=== PATIENT | female | born 1965 | race Caucasian/White ===

== ENCOUNTER 2022-06-22 16:22 | Emergency (ER) | payer MEDICAID ==
[~2022-06-22] VITALS: Ht 165.1 cm; Wt 61.2 kg
[2022-06-22] MEDS ORDERED: IV NORMAL SALINE 1000 ML BAG IV ONE (16:45)
--- NOTE | 2022-06-22 17:00 | NUR ---
pt roomed, resting comfortably in bed. blood samples sent to lab, IV started 20g R AC, has NS running as ordered by , tolerating. will continue to monitor.
[2022-06-22 17:03] LABS: HEMATOCRIT 38.4 % (31.2-41.9); MEAN CORPUSCULAR HEMOGLOBIN 32.5 uug (24.7-32.8); MEAN CORPUSCULAR VOLUME 98.3 fL (75.5-95.3); PLATELET COUNT (AUTO) 181 K/uL (179-408)
[2022-06-22 17:15] LABS: CREATININE 0.6 mg/dL (0.6-1.3); POTASSIUM 3.6 mmol/L (3.5-5.1)
--- NOTE | 2022-06-22 18:18 | NUR ---
pt completed her liter of NS, IV converted to saline lock, was given a dinner tray and ate 50% of tray. She is now resting, is asleep in bed. will continue to monitor.
--- NOTE | 2022-06-22 19:42 | NUR ---
iv to right ac pt states it is painful. i flushed the site it flushes well no signs of infiltration noted. iv was removed as pt insisted, i informed the pt if she needs an iv we need to start another one pt says she does not want one.
--- NOTE | 2022-06-22 19:54 | NUR ---
Pt stood up and ambulated, pt states she was not dizzy.
[2022-06-22] MEDS ORDERED: THIAMINE HCL 100 MG TABLET PO ONE (20:00)
[2022-06-22] MEDS ORDERED: THIAMINE HCL 100 MG TABLET ONE (20:00)
[2022-06-22] MEDS ORDERED: CYANOCOBALAMIN 1000 MCG/ML VIAL ONE (23:26)
[2022-06-22] MEDS ORDERED: CYANOCOBALAMIN 1000 MCG/ML VIAL IM ONE (23:30)
--- NOTE | 2022-06-23 03:41 | NUR ---
pt resting with eyes closed easily awakens and denies any pain.
[2022-06-23 04:47] LABS: BILIRUBIN,DIRECT 0.1 mg/dL (0.0-0.2); BILIRUBIN,TOTAL 0.3 mg/dL (0.2-1.0); TOTAL PROTEIN, SERUM 6.1 g/dL (6.4-8.2)
--- NOTE | 2022-06-23 05:31 | NUR ---
Dr. Oneill at bedside speaking with the pt for d/c home.
[2022-06-23] MEDS ORDERED: CHLORDIAZEPOXIDE HCL 25 MG CAPSULE ONE (05:43)
[2022-06-23] MEDS ORDERED: CHLORDIAZEPOXIDE HCL 25 MG CAPSULE PO ONE (05:45)
--- NOTE | 2022-06-23 05:47 | NUR ---
Patient discharged to home in stable condition. Written and verbal after care instructions given. Patient verbalizes understanding of instructions. Stressed follow up or return to ER for worsening s/s. ricardo was called for the pt as she was provided with a voucher.
[2022-06-23] MEDS ORDERED: CYAN10006 IM (05:50)
[2022-06-23] MEDS ORDERED: CHLO25CA22 PO (05:50)
[2022-06-23] MEDS ORDERED: SYRI-29 MC (05:50)
[2022-06-23 05:54] VITALS: BP 117/83
== END 2022-06-23 05:55 | disposition home or self-care (01) ==
LOC: ER 16:27
DX: F10.229 Alcohol dependence with intoxication, unspecified (principal); Y90.8 Blood alcohol level of 240 mg/100 ml or more; D75.89 Other specified diseases of blood and blood-forming organs; Z88.0 Allergy status to penicillin
CPT/HCPCS: 80048; 82607; 85025; 36415 ×2; 99284; 96360; 96372; 80320; 80076; J3420; J7040; A4663; G0480